=== PATIENT | female | born 1990 | race African-American/Black ===

== ENCOUNTER 2021-01-06 12:53 | Emergency (ER) | payer OTHER ==
[~2021-01-06] VITALS: Ht 170.2 cm; Wt 69.6 kg
[2021-01-06] MEDS ORDERED: TETRACAINE 0.5% OPHTH SOLN 4ML OU ONE (13:50)
[2021-01-06] MEDS ORDERED: FLUORESCEIN OPHTH 1 MG STRIP OU ONE (13:50)
[2021-01-06] MEDS ORDERED: CIPR0.3S6 OS (14:33)
[2021-01-06] MEDS ORDERED: CIPROFLOXACIN 0.3% OPHTH SOLN 2.5ML OS ONE (14:35)
--- OUTSIDE RECORDS SUMMARY | 2021-01-06 14:48 | CCD ---
Author Author [facility] Address Unknown Phone Unavailable Support Name Relationship Address Phone UE Next Of Kin Unknown Unavailable FLORY DHALIWAL Next Of Kin [address] [place] [address] Re-disclosure Warning The records that you are about to access may contain information from federally-assisted alcohol or drug abuse programs. If such information is present, then the following federally mandated warning applies: This information has been disclosed to you from records protected by federal confidentiality rules (42 CFR part 2). The federal rules prohibit you from making any further disclosure of this information unless further disclosure is expressly permitted by the written consent of the person to whom it pertains or as otherwise permitted by 42 CFR part 2. A general authorization for the release of medical or other information is NOT sufficient for this purpose. The Federal rules restrict any use of the information to criminally investigate or prosecute any alcohol or drug abuse patient.The records that you are about to access may contain highly sensitive health information, the redisclosure of which is protected by Article 27-F of the [facility] Public Health law. If you continue you may have access to information: Regarding HIV / AIDS; Provided by facilities licensed or operated by the [facility] Office of Mental Health; or Provided by the [facility] Office for People With Developmental Disabilities. If such information is present, then the following [facility] mandated warning applies: This information has been disclosed to you from confidential records which are protected by state law. State law prohibits you from making any further disclosure of this information without the specific written consent of the person to whom it pertains, or as otherwise permitted by law. Any unauthorized further disclosure in violation of state law may result in a fine or alf sentence or both. A general authorization for the release of medical or other information is NOT sufficient authorization for further disc losure. Medications No Information Insurance Providers Payer name Policy type / Coverage type Policy ID Covered constitution party ID Covered constitution party's relationship to santana Policy [employer] Plan Information [facility] [id number] Problems, Conditions, and Diagnoses No Information Surgeries/Procedures No Information Results No Information Social History No Information
[2021-01-06 14:57] VITALS: BP 126/65
== END 2021-01-06 15:09 | disposition home or self-care (01) ==
LOC: M ED 12:53
DX: S05.02XA Injury of conjunctiva and corneal abrasion without foreign body, left eye, initial encounter (principal); W50.0XXA Accidental hit or strike by another person, initial encounter; Y92.89 Other specified places as the place of occurrence of the external cause; Y93.89 Activity, other specified; Y99.8 Other external cause status

== ENCOUNTER 2024-04-01 13:21 | Outpatient (CLI) | payer OTHER ==
[~2024-04-01] VITALS: Ht 175.3 cm; Wt 92.7 kg
[~2024-04-01 13:21] MED LIST: CIPR0.3S37 OS
[2024-04-01 13:50] VITALS: BP 129/59; O2SAT 99
[2024-04-01] MEDS: METHOTREXATE IM ONE (14:13)
[2024-04-01 14:25] VITALS: BP 126/58; O2SAT 99
[2024-04-01 15:14] VITALS: BP 110/56; O2SAT 100
== END 2024-04-01 15:15 | disposition home or self-care (01) ==
LOC: M INFU 13:21
PROVIDERS: ATTEND Student in an Organized Health Care Education/Training Program
DX: O00.90 Unspecified ectopic pregnancy without intrauterine pregnancy (principal)
CPT/HCPCS: 96372; J9260

== ENCOUNTER → 2024-04-04 | Outpatient (CLI) | payer OTHER ==
[2024-04-04 15:05] LABS: HCG, SERUM QUALITATIVE POSITIVE (NEGATIVE)
== END ==
LOC: M LAB 14:04
PROVIDERS: ATTEND Student in an Organized Health Care Education/Training Program
DX: O00.90 Unspecified ectopic pregnancy without intrauterine pregnancy (principal)

== ENCOUNTER → 2024-04-07 | Outpatient (CLI) | payer OTHER | LOC: M LAB 08:55 | PROVIDERS: ATTEND Student in an Organized Health Care Education/Training Program | DX: O00.90 Unspecified ectopic pregnancy without intrauterine pregnancy (principal) ==

== ENCOUNTER → 2024-04-08 | Outpatient (CLI) | payer OTHER ==
[~2024-04-08] VITALS: Ht 175.3 cm; Wt 90.7 kg
[2024-04-08 16:05] VITALS: BP 133/61; O2SAT 100
[2024-04-08] MEDS: METHOTREXATE IM ONE (16:18)
[2024-04-08 17:20] VITALS: BP 117/58; O2SAT 99
== END ==
LOC: M INFU 13:23
PROVIDERS: ATTEND Student in an Organized Health Care Education/Training Program
DX: O00.90 Unspecified ectopic pregnancy without intrauterine pregnancy (principal)
CPT/HCPCS: 96372; J9260

== ENCOUNTER → 2024-04-12 | Outpatient (CLI) | payer OTHER | LOC: M LAB 14:34 | PROVIDERS: ATTEND General Practice | DX: O00.90 Unspecified ectopic pregnancy without intrauterine pregnancy (principal) ==

== ENCOUNTER → 2024-04-14 | Outpatient (CLI) | payer OTHER | LOC: M LAB 08:48 | PROVIDERS: ATTEND General Practice | DX: O00.90 Unspecified ectopic pregnancy without intrauterine pregnancy (principal); Z3A.00 Weeks of gestation of pregnancy not specified ==